=== PATIENT | female | born 1955 | race Caucasian/White ===

== ENCOUNTER 2017-08-22 18:48 | Emergency (ER) | payer BC ==
[~2017-08-22] VITALS: Ht 152.4 cm; Wt 68.0 kg
[2017-08-22 18:59] VITALS: BP 176/107
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
[2017-08-22] MEDS ORDERED: KETOROLAC 60 MG/2 ML VIAL IM ONE (19:35)
--- NOTE | 2017-08-22 19:40 | NUR ---
Patient being evaluated by physician at bedside.
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
--- NOTE | 2017-08-22 20:50 | NUR ---
Shiloh nogueira in [facility] - 08/23/17 at 0422 by [id number] Patient being evaluated by physician at bedside.
[2017-08-22 21:35] VITALS: BP 155/84
--- NOTE | 2017-08-22 21:35 | NUR ---
Patient discharged with v/s stable. Written and verbal after care instructions given and explained. Patient alert, oriented and verbalized understanding of instructions. Ambulatory with steady gait. All questions addressed prior to discharge. ID band removed. Patient advised to follow up with PMD. Rx of TRAMADOL 50MG, MOTRIN 80MG given. Patient educated on indication of medication including possible reaction and side effects. Opportunity to ask questions provided and answered.
== END 2017-08-22 21:35 | disposition home or self-care (01) ==
LOC: MED 18:48
DX: S93.401A Sprain of unspecified ligament of right ankle, initial encounter (principal); S70.02XA Contusion of left hip, initial encounter; V43.52XA Car driver injured in collision with other type car in traffic accident, initial encounter; Y93.19 Activity, other involving water and watercraft; Y92.488 Other paved roadways as the place of occurrence of the external cause; Y99.8 Other external cause status
CPT/HCPCS: 73610; 74022; 96372; 99284; J1885